=== PATIENT | female | born 1945 | race Hispanic/Latino ===

== ENCOUNTER 2019-04-29 08:25 | Emergency (ER) | payer MEDICARE ==
[~2019-04-29] VITALS: Ht 154.9 cm; Wt 103.4 kg
[~2019-04-29 08:25] MED LIST: ASA81 MG PO; ASPIR 8181 MG PO; AUGMENTIN 875-1 EACH PO; BACLOFEN10 MG PO; COUMADIN4 MG PO; GABAPENTIN300 MG PO; GLIPIZIDE ER10 MG PO; K-DUR20 ME1 PO; KEFLEX500 MG; KLOR-CON M2020 MEQ PO; LASIX20 MG PO; LEVOTHROID175 MCG PO; LEVOTHYROXINE200 MCG PO; LOSARTAN POTASS25 MG PO; METFORMIN HCL500 MG PO; OXAPROZIN600 MG PO; POTASSIUM CHLO20 ME1 PO; SIMVASTATIN40 MG PO; TYLENOL WITH C1 EACH PO; ULTRAM50 MG PO; Z LEVOTHROID PO; Z.0.COUMADIN3 MG PO; Z.0.GLUCOPHAGE500 MG PO; Z.0.LASIX40 MG PO; Z.0.PROTONIX40 MG PO; Z.0.SIMVASTATIN40 MG PO
--- OUTSIDE RECORDS SUMMARY | 2019-04-29 08:29 | XMS REPORT ---
[facility] Address Unknown Phone Unavailable Care Team Providers Care [employer] Driver Name Role Phone Ruth REYNAGA Unavailable Unavailable Problems This patient has no known problems. Allergies, Adverse Reactions, Alerts This patient has no known allergies or adverse reactions. Medications This patient has no known medications. Results Test Description Test Time Test Comments Text Results Atomic Results Result Comments FOREARM LEFT 2 VIEW [place] [address] Patient Name: ARIN ALBERTO MR #: [id number] : 1945 Age/Sex: 71/F Req #: [id number] Adm Physician: Ordered by: CAROL REYNAGA MD Report #: [id number] Location: ER Room/Bed: Procedure: [id number] DX/FOREARM LEFT 2 VIEW Exam Date: 06/26/17 Exam Time: 2114 REPORT STATUS: Signed FOREARM LEFT 2 VIEW HISTORY: Status post fall COMPARISON: None FINDINGS: Bones: No displaced fracture. Osseous alignment is within normal limits. Joints: The joint spaces are well-maintained. Soft tissues: Dorsal left forearm soft tissue swelling IMPRESSION: No acute osseous abnormality. Diffuse soft tissue swelling more significant at the dorsal mid left forearm Signed by: Dr. Ranjan Villaseñor M.D. on 06/26/2017 10:14 PM Dictated By: RANJAN WRIGHT MD 13 Transcribed By: [place] on 06/26/172213 COPY TO: CAROL REYNAGA MD
--- NOTE | 2019-04-29 09:20 | Diagnostic Imaging Report ---
EXAMINATION: CXR 1 [facility] INDICATION: Cough COMPARISON: Chest radiograph of 06/10/2012 FINDINGS: LINES/TUBES:None LUNGS:The lungs are well-inflated. No focal consolidation or pulmonary edema. Mild subsegmental atelectasis at the left midlung zone. PLEURA:No pleural effusion or pneumothorax. MEDIASTINUM:Cardiomediastinal silhouette is stably enlarged. BONES/SOFT TISSUES:No acute osseous injury. Sternotomy wires intact. ABDOMEN:No free air under the diaphragm. IMPRESSION: No focal pneumonia or pulmonary edema. Signed by: Christi Mann MD on 04/29/2019 9:17 AM
[2019-04-29 10:15] VITALS: BP 119/62
== END 2019-04-29 10:25 | disposition home or self-care (01) ==
LOC: FSED 08:25
DX: R05 Cough (principal); J20.9 Acute bronchitis, unspecified
CPT/HCPCS: 71045; 83518; 87400; 99283

== ENCOUNTER → 2020-03-28 | Outpatient (CLI) | payer MEDICARE | LOC: CARD 13:39 | PROVIDERS: ATTEND Family Medicine | DX: I73.9 Peripheral vascular disease, unspecified (principal) | CPT/HCPCS: 93922; 93925 ==

== ENCOUNTER 2020-08-29 12:42 | Inpatient (IN) | payer MEDICARE ==
[~2020-08-29] VITALS: Ht 154.9 cm; Wt 99.9 kg
[2020-08-29] MEDS ORDERED: ACETAMINOPHEN 325 MG SUPP PR ONE (13:15)
[2020-08-29] MEDS ORDERED: LACTATED RINGER'S 1,000 ML INJ ONE (13:15)
[2020-08-29] MEDS ORDERED: CEFTRIAXONE SOD 1 GM/NS 50 ML 50 ML IV ONE (13:15)
[2020-08-29] MEDS ORDERED: ACETAMINOPHEN 325 MG TAB PO PRN (13:15)
[2020-08-29] MEDS ORDERED: ACETAMINOPHEN 650 MG SUPP PR ONE (13:16)
[2020-08-29 13:24] LABS: BASOPHILS % 0.4 % (0.0-1.0); HEMATOCRIT 39.7 % (34.2-44.1); HEMOGLOBIN 12.6 g/dL (12.0-16.0); LYMPHOCYTES # (AUTO) 2.9 (1.0-3.2); LYMPHOCYTES % 28.3 % (18.0-39.1); MEAN CORPUSCULAR HEMOGLOBIN 29.7 pg (28-32); MEAN CORPUSCULAR HGB CONC 31.7 g/dL (31-35); MEAN CORPUSCULAR VOLUME 93.6 fL (81-99); MONOCYTES # (AUTO) 1.4 (0.2-0.8); MONOCYTES % 13.5 % (4.4-11.3); NEUTROPHILS # (AUTO) 5.9 (2.1-6.9); NEUTROPHILS % 57.4 % (38.7-80.0); PLATELET COUNT 316 x10e3/uL (140-360); RED BLOOD COUNT 4.24 x10e6/uL (3.6-5.1); RED CELL DISTRIBUTION WIDTH 14.6 % (11.7-14.4)
[2020-08-29 13:27] LABS: CLARITY,URINE CLEAR (CLEAR); COLOR,URINE YELLOW (YELLOW); KETONES,URINE NEGATIVE (NEGATIVE); LEUKOCYTE ESTERASE ,URINE NEGATIVE (NEGATIVE); NITRITE,URINE NEGATIVE (NEGATIVE); PROTEIN,URINE DIPSTICK 2+ (NEGATIVE)
[2020-08-29 13:36] LABS: BACTERIA,URINE RARE /HPF; EPITHELIAL CELLS,URINE RARE /LPF
[2020-08-29 13:44] LABS: ALBUMIN 3.7 g/dL (3.5-5.0); ALBUMIN/GLOBULIN RATIO 0.7 (0.8-2.0); ANION GAP 13.4 mmol/L (8-16); CALCIUM 8.8 mg/dL (8.4-10.2); CREATININE, SERUM 1.31 mg/dL (0.57-1.11); POTASSIUM 3.4 mmol/L (3.5-5.1)
[2020-08-29 15:27] LABS: INR 1.04; PROTHROMBIN TIME 14.2 seconds (11.9-14.5)
[2020-08-29] MEDS ORDERED: ONDANSETRON HCL INJ 2MG/ML 2ML 2 MG/ML VIAL IV PRN ×2 (15:30→17:00)
[2020-08-29] MEDS: GABAPENTIN 300 MG CAP PO SCH (15:56)
[2020-08-29] MEDS: AZITHROMYCIN 500MG/NS 250 ML 250 ML IV SCH (15:56)
[2020-08-29] MEDS ORDERED: GLIPIZIDE 5 MG PO SCH (17:00)
[2020-08-29 20:25] VITALS: BP 120/63
[2020-08-29] MEDS ORDERED: ZOLPIDEM TARTRATE 5 MG TAB PO PRN (21:00)
[2020-08-29] MEDS ORDERED: ENOXAPARIN SOD INJ 40 MG/0.4 ML SYR SC STA (21:51)
[2020-08-29] MEDS ORDERED: DEXTROSE 50% SYRINGE 50 ML IV PRN (22:00)
[2020-08-29 23:00] VITALS: BP 120/63
[2020-08-30] VITALS (8 sets, daily range): BP systolic 98–138; BP diastolic 42–73
[2020-08-30] MEDS ORDERED: SIMVASTATIN40 MG PO (05:48)
[2020-08-30] MEDS ORDERED: PREVACID30 MG (05:48)
[2020-08-30] MEDS ORDERED: BENICAR20 MG PO (05:48)
[2020-08-30] MEDS: LEVOTHYROXINE SODIUM 100 MCG TAB PO SCH (06:00)
[2020-08-30 06:13] LABS: BASOPHILS % 0.4 % (0.0-1.0); HEMATOCRIT 35.6 % (34.2-44.1); HEMOGLOBIN 11.4 g/dL (12.0-16.0); LYMPHOCYTES # (AUTO) 1.8 (1.0-3.2); LYMPHOCYTES % 21.3 % (18.0-39.1); MEAN CORPUSCULAR HEMOGLOBIN 29.2 pg (28-32); MEAN CORPUSCULAR VOLUME 91.3 fL (81-99); MONOCYTES # (AUTO) 0.9 (0.2-0.8); MONOCYTES % 10.4 % (4.4-11.3); NEUTROPHILS # (AUTO) 5.7 (2.1-6.9); NEUTROPHILS % 67.4 % (38.7-80.0); PLATELET COUNT 262 x10e3/uL (140-360); RED CELL DISTRIBUTION WIDTH 14.6 % (11.7-14.4)
[2020-08-30 06:43] LABS: ANION GAP 14.3 mmol/L (8-16); CALCIUM 8.1 mg/dL (8.4-10.2); CREATININE, SERUM 0.98 mg/dL (0.57-1.11); POTASSIUM 4.3 mmol/L (3.5-5.1)
[2020-08-30] MEDS: INSULIN REGULAR, HUMAN 100 UNIT/1 ML 3ML VIAL SQ SCH ×4 (07:30→20:59)
[2020-08-30] MEDS: ASPIRIN 81 MG CHEW TAB PO SCH (08:43)
[2020-08-30] MEDS: GABAPENTIN 300 MG CAP PO SCH ×2 (08:43→16:46)
[2020-08-30] MEDS: GLIPIZIDE 5 MG TAB ER PO SCH ×2 (08:43→16:46)
[2020-08-30] MEDS: POTASSIUM CHLORIDE 20 MEQ TAB CR PO SCH (08:44)
[2020-08-30] MEDS ORDERED: NON-FORMULARY MEDICATION (Warfarin Sodium (Coumadin) 4 MG) PO SCH (09:00)
[2020-08-30] MEDS: ACETAMINOPHEN 325 MG TAB PO PRN (11:55)
[2020-08-30] MEDS: CEFTRIAXONE SOD 1 GM/NS 50 ML 50 ML IV SCH (13:14)
[2020-08-30] MEDS ORDERED: SODIUM CHLORIDE 0.9% 250ML 250 ML ONE (13:33)
[2020-08-30] MEDS: AZITHROMYCIN 500MG/NS 250 ML 250 ML IV SCH (15:30)
[2020-08-30] MEDS ORDERED: BISACODYL 5 MG TAB EC PO ONE (16:30)
[2020-08-30] MEDS: DOCUSATE SODIUM 100 MG CAP PO SCH (16:46)
[2020-08-30] MEDS ORDERED: WARFARIN SOD 2 MG TAB PO SCH (17:00)
[2020-08-30 17:38] LABS: INR 1.02
[2020-08-30] MEDS ORDERED: HEPARIN SOD (PORCINE) 1000 UNIT/ML SDV IV ONE (19:45)
[2020-08-30] MEDS ORDERED: HEPARIN 25,000 UNIT 800 UNIT in DEXTROSE 5% 250ML 250 ML IV SCH ×2 (20:00→22:00)
[2020-08-30] MEDS: SIMVASTATIN 40 MG TAB PO SCH (21:00)
[2020-08-30] MEDS ORDERED: HEPARIN 25,000 UNIT DRIP IV ONE (21:16)
[2020-08-30] MEDS ORDERED: HEPARIN SOD (PORCINE) 5,000 UNIT/ML VIAL IV ONE ×2 (21:45→22:00)
[2020-08-30] MEDS ORDERED: HEPARIN 25,000 UNIT 1,300 UNIT in DEXTROSE 5% 250ML 250 ML IV SCH (21:45)
[2020-08-30] MEDS: HEPARIN 25,000 UNIT 25,000 UNIT in DEXTROSE 5% 250ML 250 ML IV SCH (23:45)
[2020-08-31] VITALS (8 sets, daily range): BP systolic 102–133; BP diastolic 39–69
[2020-08-31] MEDS: ACETAMINOPHEN 325 MG TAB PO PRN (00:53)
[2020-08-31 05:19] LABS: BASOPHILS % 0.4 % (0.0-1.0); HEMATOCRIT 39.1 % (34.2-44.1); HEMOGLOBIN 12.2 g/dL (12.0-16.0); LYMPHOCYTES % 33.2 % (18.0-39.1); MEAN CORPUSCULAR HEMOGLOBIN 29.2 pg (28-32); MEAN CORPUSCULAR HGB CONC 31.2 g/dL (31-35); MEAN CORPUSCULAR VOLUME 93.5 fL (81-99); MONOCYTES # (AUTO) 0.9 (0.2-0.8); MONOCYTES % 9.9 % (4.4-11.3); NEUTROPHILS # (AUTO) 5.1 (2.1-6.9); NEUTROPHILS % 56.1 % (38.7-80.0); PLATELET COUNT 307 x10e3/uL (140-360); RED BLOOD COUNT 4.18 x10e6/uL (3.6-5.1); RED CELL DISTRIBUTION WIDTH 14.6 % (11.7-14.4)
[2020-08-31 05:54] LABS: ANION GAP 13.8 mmol/L (8-16); CALCIUM 8.7 mg/dL (8.4-10.2); CREATININE, SERUM 1.26 mg/dL (0.57-1.11); POTASSIUM 3.8 mmol/L (3.5-5.1)
[2020-08-31] MEDS: LEVOTHYROXINE SODIUM 100 MCG TAB PO SCH (06:00)
[2020-08-31] MEDS: INSULIN REGULAR, HUMAN 100 UNIT/1 ML 3ML VIAL SQ SCH ×4 (07:30→21:00)
[2020-08-31] MEDS: GLIPIZIDE 5 MG TAB ER PO SCH ×2 (08:00→16:42)
[2020-08-31] MEDS: LOSARTAN POTASSIUM 25 MG TAB PO SCH (08:40)
[2020-08-31] MEDS: ASPIRIN 81 MG CHEW TAB PO SCH (08:40)
[2020-08-31] MEDS: DOCUSATE SODIUM 100 MG CAP PO SCH ×2 (08:40→16:41)
[2020-08-31] MEDS: GABAPENTIN 300 MG CAP PO SCH ×2 (08:41→16:42)
[2020-08-31] MEDS: FUROSEMIDE 20 MG TAB PO SCH (08:41)
[2020-08-31] MEDS: POTASSIUM CHLORIDE 20 MEQ TAB CR PO SCH (08:41)
[2020-08-31] MEDS: CEFTRIAXONE SOD 1 GM/NS 50 ML 50 ML IV SCH (13:43)
[2020-08-31] MEDS: AZITHROMYCIN 500MG/NS 250 ML 250 ML IV SCH (15:48)
[2020-08-31] MEDS: WARFARIN SOD 5 MG TAB PO SCH (16:41)
[2020-08-31] MEDS: DEXAMETHASONE SOD PHOS 10 MG/1 ML VIAL IV SCH (22:31)
[2020-08-31] MEDS: SIMVASTATIN 40 MG TAB PO SCH (22:31)
[2020-08-31] MEDS: HEPARIN 25,000 UNIT 25,000 UNIT in DEXTROSE 5% 250ML 250 ML IV SCH (23:45)
[2020-09-01] VITALS (8 sets, daily range): BP systolic 106–119; BP diastolic 52–71
[2020-09-01] MEDS: LEVOTHYROXINE SODIUM 100 MCG TAB PO SCH (05:41)
[2020-09-01 06:01] LABS: BASOPHILS % 0.2 % (0.0-1.0); HEMATOCRIT 37.1 % (34.2-44.1); HEMOGLOBIN 11.6 g/dL (12.0-16.0); LYMPHOCYTES # (AUTO) 1.5 (1.0-3.2); MEAN CORPUSCULAR HEMOGLOBIN 28.9 pg (28-32); MEAN CORPUSCULAR HGB CONC 31.3 g/dL (31-35); MEAN CORPUSCULAR VOLUME 92.3 fL (81-99); MONOCYTES # (AUTO) 0.2 (0.2-0.8); MONOCYTES % 2.8 % (4.4-11.3); NEUTROPHILS # (AUTO) 4.6 (2.1-6.9); NEUTROPHILS % 72.8 % (38.7-80.0); PLATELET COUNT 281 x10e3/uL (140-360); RED BLOOD COUNT 4.02 x10e6/uL (3.6-5.1); RED CELL DISTRIBUTION WIDTH 14.6 % (11.7-14.4)
[2020-09-01 06:14] LABS: INR 1.11
[2020-09-01 06:25] LABS: CALCIUM 8.1 mg/dL (8.4-10.2); CREATININE, SERUM 1.28 mg/dL (0.57-1.11)
[2020-09-01] MEDS: DOCUSATE SODIUM 100 MG CAP PO SCH ×2 (09:00→18:35)
[2020-09-01] MEDS ORDERED: REMDESIVIR 200MG/NS 100ML 200 MG IV ONE (09:00)
[2020-09-01] MEDS: LOSARTAN POTASSIUM 25 MG TAB PO SCH (09:00)
[2020-09-01] MEDS: ASPIRIN 81 MG CHEW TAB PO SCH (09:18)
[2020-09-01] MEDS: GABAPENTIN 300 MG CAP PO SCH ×2 (09:19→18:35)
[2020-09-01] MEDS: POTASSIUM CHLORIDE 20 MEQ TAB CR PO SCH (09:19)
[2020-09-01] MEDS: FUROSEMIDE 20 MG TAB PO SCH (09:19)
[2020-09-01] MEDS: INSULIN REGULAR, HUMAN 100 UNIT/1 ML 3ML VIAL SQ SCH ×4 (11:57→21:00)
[2020-09-01] MEDS: CEFTRIAXONE SOD 1 GM/NS 50 ML 50 ML IV SCH (12:26)
[2020-09-01] MEDS: AZITHROMYCIN 500MG/NS 250 ML 250 ML IV SCH (15:25)
[2020-09-01] MEDS: WARFARIN SOD 5 MG TAB PO SCH (17:00)
[2020-09-01] MEDS: DEXAMETHASONE SOD PHOS 10 MG/1 ML VIAL IV SCH (20:00)
[2020-09-01] MEDS: SIMVASTATIN 40 MG TAB PO SCH (22:11)
[2020-09-01] MEDS: HEPARIN 25,000 UNIT 25,000 UNIT in DEXTROSE 5% 250ML 250 ML IV SCH (23:45)
[2020-09-02] VITALS (7 sets, daily range): BP systolic 106–143; BP diastolic 54–92
[2020-09-02] MEDS: LEVOTHYROXINE SODIUM 100 MCG TAB PO SCH (05:42)
[2020-09-02] MEDS: POTASSIUM CHLORIDE 20 MEQ TAB CR PO SCH (09:00)
[2020-09-02] MEDS: DOCUSATE SODIUM 100 MG CAP PO SCH ×2 (10:15→18:24)
[2020-09-02] MEDS: REMDESIVIR 100MG/NS 100ML 100 MG IV SCH (10:15)
[2020-09-02] MEDS: ASPIRIN 81 MG CHEW TAB PO SCH (10:15)
[2020-09-02] MEDS: LOSARTAN POTASSIUM 25 MG TAB PO SCH (10:16)
[2020-09-02] MEDS: FUROSEMIDE 20 MG TAB PO SCH (10:17)
[2020-09-02] MEDS: GABAPENTIN 300 MG CAP PO SCH ×2 (10:17→18:25)
[2020-09-02] MEDS: ACETAMINOPHEN 325 MG TAB PO PRN (10:18)
[2020-09-02] MEDS: INSULIN REGULAR, HUMAN 100 UNIT/1 ML 3ML VIAL SQ SCH ×4 (10:20→21:00)
[2020-09-02] MEDS: AZITHROMYCIN 500MG/NS 250 ML 250 ML IV SCH (14:58)
[2020-09-02] MEDS: CEFTRIAXONE SOD 1 GM/NS 50 ML 50 ML IV SCH (14:58)
[2020-09-02] MEDS: WARFARIN SOD 5 MG TAB PO SCH (18:25)
[2020-09-02] MEDS: DEXAMETHASONE SOD PHOS 10 MG/1 ML VIAL IV SCH (20:00)
[2020-09-02] MEDS: SIMVASTATIN 40 MG TAB PO SCH (21:43)
[2020-09-02] MEDS: HEPARIN 25,000 UNIT 25,000 UNIT in DEXTROSE 5% 250ML 250 ML IV SCH (23:45)
[2020-09-03] VITALS (8 sets, daily range): BP systolic 121–144; BP diastolic 56–84
[2020-09-03] MEDS: LEVOTHYROXINE SODIUM 100 MCG TAB PO SCH (05:54)
[2020-09-03 06:34] LABS: HEMATOCRIT 34.6 % (34.2-44.1); HEMOGLOBIN 11.2 g/dL (12.0-16.0); LYMPHOCYTES # (AUTO) 1.2 (1.0-3.2); LYMPHOCYTES % 26.3 % (18.0-39.1); MEAN CORPUSCULAR HEMOGLOBIN 28.9 pg (28-32); MEAN CORPUSCULAR HGB CONC 32.4 g/dL (31-35); MEAN CORPUSCULAR VOLUME 89.4 fL (81-99); MONOCYTES # (AUTO) 0.4 (0.2-0.8); NEUTROPHILS % 64.6 % (38.7-80.0); PLATELET COUNT 339 x10e3/uL (140-360); RED BLOOD COUNT 3.87 x10e6/uL (3.6-5.1); RED CELL DISTRIBUTION WIDTH 14.2 % (11.7-14.4)
[2020-09-03 07:04] LABS: ANION GAP 15.4 mmol/L (8-16); CALCIUM 8.5 mg/dL (8.4-10.2); CREATININE, SERUM 1.1 mg/dL (0.57-1.11); POTASSIUM 4.4 mmol/L (3.5-5.1)
[2020-09-03] MEDS: DOCUSATE SODIUM 100 MG CAP PO SCH ×2 (10:26→18:02)
[2020-09-03] MEDS: GLIPIZIDE 5 MG TAB PO SCH ×2 (10:26→18:02)
[2020-09-03] MEDS: ASPIRIN 81 MG CHEW TAB PO SCH (10:26)
[2020-09-03] MEDS: LOSARTAN POTASSIUM 25 MG TAB PO SCH (10:26)
[2020-09-03] MEDS: REMDESIVIR 100MG/NS 100ML 100 MG IV SCH (10:26)
[2020-09-03] MEDS: GABAPENTIN 300 MG CAP PO SCH ×2 (10:27→18:03)
[2020-09-03] MEDS: FUROSEMIDE 20 MG TAB PO SCH (10:27)
[2020-09-03] MEDS: POTASSIUM CHLORIDE 20 MEQ TAB CR PO SCH (10:27)
[2020-09-03] MEDS: CEFTRIAXONE SOD 1 GM/NS 50 ML 50 ML IV SCH (13:08)
[2020-09-03] MEDS: INSULIN REGULAR, HUMAN 100 UNIT/1 ML 3ML VIAL SQ SCH ×4 (13:39→21:00)
[2020-09-03 14:37] LABS: INR 1.32; PROTHROMBIN TIME 17.3 seconds (11.9-14.5)
[2020-09-03] MEDS: AZITHROMYCIN 500MG/NS 250 ML 250 ML IV SCH (16:15)
[2020-09-03] MEDS: WARFARIN SOD 5 MG TAB PO SCH (18:03)
[2020-09-03] MEDS: DEXAMETHASONE SOD PHOS 10 MG/1 ML VIAL IV SCH (20:59)
[2020-09-03] MEDS: SIMVASTATIN 40 MG TAB PO SCH (20:59)
[2020-09-03] MEDS: HEPARIN 25,000 UNIT 25,000 UNIT in DEXTROSE 5% 250ML 250 ML IV SCH (23:45)
[2020-09-04] VITALS (8 sets, daily range): BP systolic 109–160; BP diastolic 58–75
[2020-09-04] MEDS: LEVOTHYROXINE SODIUM 100 MCG TAB PO SCH (05:53)
[2020-09-04 06:34] LABS: INR 1.68
[2020-09-04] MEDS: INSULIN REGULAR, HUMAN 100 UNIT/1 ML 3ML VIAL SQ SCH ×5 (07:30→21:45)
[2020-09-04] MEDS: GLIPIZIDE 5 MG TAB PO SCH ×2 (08:30→16:29)
[2020-09-04] MEDS: ASPIRIN 81 MG CHEW TAB PO SCH (09:04)
[2020-09-04] MEDS: LOSARTAN POTASSIUM 25 MG TAB PO SCH (09:04)
[2020-09-04] MEDS: GABAPENTIN 300 MG CAP PO SCH ×2 (09:04→16:29)
[2020-09-04] MEDS: FUROSEMIDE 20 MG TAB PO SCH (09:04)
[2020-09-04] MEDS: DOCUSATE SODIUM 100 MG CAP PO SCH ×2 (09:04→16:29)
[2020-09-04] MEDS: POTASSIUM CHLORIDE 20 MEQ TAB CR PO SCH (09:05)
[2020-09-04] MEDS: REMDESIVIR 100MG/NS 100ML 100 MG IV SCH (10:00)
[2020-09-04] MEDS: CEFTRIAXONE SOD 1 GM/NS 50 ML 50 ML IV SCH (12:02)
[2020-09-04] MEDS: AZITHROMYCIN 500MG/NS 250 ML 250 ML IV SCH (15:45)
[2020-09-04] MEDS: WARFARIN SOD 5 MG TAB PO SCH (16:29)
[2020-09-04] MEDS ORDERED: REMDESIVIR 200MG/NS 100ML 200 MG in SODIUM CHLORIDE 0.9% 100 ML 100 ML IV ONE (21:30)
[2020-09-04] MEDS: DEXAMETHASONE SOD PHOS 10 MG/1 ML VIAL IV SCH (21:45)
[2020-09-04] MEDS: SIMVASTATIN 40 MG TAB PO SCH (21:45)
[2020-09-05] VITALS (8 sets, daily range): BP systolic 123–171; BP diastolic 51–80
[2020-09-05] MEDS: HEPARIN 25,000 UNIT 25,000 UNIT in DEXTROSE 5% 250ML 250 ML IV SCH ×2 (00:08→23:45)
[2020-09-05] MEDS: LEVOTHYROXINE SODIUM 100 MCG TAB PO SCH (06:00)
[2020-09-05 06:16] LABS: INR 2.11; PROTHROMBIN TIME 25.3 seconds (11.9-14.5)
[2020-09-05 06:25] LABS: ANION GAP 15.5 mmol/L (8-16); CALCIUM 8.4 mg/dL (8.4-10.2); CREATININE, SERUM 0.96 mg/dL (0.57-1.11); POTASSIUM 4.5 mmol/L (3.5-5.1)
[2020-09-05 06:50] LABS: BASOPHILS % 0.3 % (0.0-1.0); HEMATOCRIT 37.3 % (34.2-44.1); HEMOGLOBIN 11.9 g/dL (12.0-16.0); LYMPHOCYTES # (AUTO) 1.8 (1.0-3.2); MEAN CORPUSCULAR HEMOGLOBIN 28.8 pg (28-32); MEAN CORPUSCULAR HGB CONC 31.9 g/dL (31-35); MEAN CORPUSCULAR VOLUME 90.3 fL (81-99); MONOCYTES # (AUTO) 0.4 (0.2-0.8); MONOCYTES % 5.8 % (4.4-11.3); NEUTROPHILS # (AUTO) 4.8 (2.1-6.9); NEUTROPHILS % 67.5 % (38.7-80.0); PLATELET COUNT 383 x10e3/uL (140-360); RED BLOOD COUNT 4.13 x10e6/uL (3.6-5.1); RED CELL DISTRIBUTION WIDTH 14.5 % (11.7-14.4)
[2020-09-05] MEDS: GLIPIZIDE 5 MG TAB PO SCH ×2 (08:30→16:09)
[2020-09-05] MEDS: INSULIN REGULAR, HUMAN 100 UNIT/1 ML 3ML VIAL SQ SCH ×4 (08:30→21:30)
[2020-09-05] MEDS: ASPIRIN 81 MG CHEW TAB PO SCH (09:23)
[2020-09-05] MEDS: DOCUSATE SODIUM 100 MG CAP PO SCH ×2 (09:23→16:09)
[2020-09-05] MEDS: LOSARTAN POTASSIUM 25 MG TAB PO SCH (09:24)
[2020-09-05] MEDS: FUROSEMIDE 20 MG TAB PO SCH (09:24)
[2020-09-05] MEDS: GABAPENTIN 300 MG CAP PO SCH ×2 (09:24→16:10)
[2020-09-05] MEDS: REMDESIVIR 100MG/NS 100ML 100 MG IV SCH (10:00)
[2020-09-05] MEDS ORDERED: REMDESIVIR 200MG/NS 100ML 200 MG in SODIUM CHLORIDE 0.9% 100 ML 100 ML IV ONE (10:00)
[2020-09-05] MEDS: CEFTRIAXONE SOD 1 GM/NS 50 ML 50 ML IV SCH (12:08)
[2020-09-05] MEDS: AZITHROMYCIN 500MG/NS 250 ML 250 ML IV SCH (14:30)
[2020-09-05] MEDS: POTASSIUM CHLORIDE 20 MEQ TAB CR PO SCH (14:45)
[2020-09-05] MEDS ORDERED: ALPRAZOLAM 0.5 MG TAB PO PRN (15:00)
[2020-09-05] MEDS: WARFARIN SOD 5 MG TAB PO SCH (16:09)
[2020-09-05] MEDS ORDERED: SODIUM CHLORIDE 1 GM TAB PO NR (16:15)
[2020-09-05] MEDS: SIMVASTATIN 40 MG TAB PO SCH (20:45)
[2020-09-05] MEDS: DEXAMETHASONE SOD PHOS 10 MG/1 ML VIAL IV SCH (20:45)
[2020-09-05] MEDS ORDERED: REMDESIVIR 100MG/NS 100ML 100 MG in SODIUM CHLORIDE 0.9% 100 ML 100 ML IV SCH (21:30)
[2020-09-06] VITALS: BP 133/81
[2020-09-06 04:15] VITALS: BP 142/68
[2020-09-06 05:09] LABS: INR 2.68; PROTHROMBIN TIME 30.8 seconds (11.9-14.5)
[2020-09-06] MEDS: LEVOTHYROXINE SODIUM 100 MCG TAB PO SCH (06:08)
[2020-09-06 08:00] VITALS: BP 142/68
[2020-09-06] MEDS: GLIPIZIDE 5 MG TAB PO SCH ×2 (08:37→16:25)
[2020-09-06] MEDS: ASPIRIN 81 MG CHEW TAB PO SCH (08:38)
[2020-09-06] MEDS: DOCUSATE SODIUM 100 MG CAP PO SCH ×2 (08:39→16:25)
[2020-09-06] MEDS: LOSARTAN POTASSIUM 25 MG TAB PO SCH (08:39)
[2020-09-06] MEDS: FUROSEMIDE 20 MG TAB PO SCH (08:40)
[2020-09-06] MEDS: GABAPENTIN 300 MG CAP PO SCH ×2 (08:40→16:25)
[2020-09-06] MEDS: POTASSIUM CHLORIDE 20 MEQ TAB CR PO SCH (08:40)
[2020-09-06] MEDS: INSULIN REGULAR, HUMAN 100 UNIT/1 ML 3ML VIAL SQ SCH ×2 (09:22→12:44)
[2020-09-06 10:22] VITALS: BP 142/68
[2020-09-06] MEDS ORDERED: Warfarin Sod PO (13:49)
[2020-09-06] MEDS ORDERED: COLACE100 MG PO (13:49)
[2020-09-06] MEDS ORDERED: DECADRON4 M1 PO (13:52)
[2020-09-06] MEDS: AZITHROMYCIN 500MG/NS 250 ML 250 ML IV SCH (15:30)
[2020-09-06] MEDS: WARFARIN SOD 5 MG TAB PO SCH (16:25)
== END 2020-09-06 17:40 | DRG 177 ==
LOC: ER 12:48 → ERHOLD 14:50 → MED/SURG3 19:54 → IMCU 09-05 22:31
PROVIDERS: ADMIT Internal Medicine; ATTEND Internal Medicine
PROC: 3E0333Z Introduction of Anti-inflammatory into Peripheral Vein, Percutaneous Approach (ICD-10-PCS; 2020-08-31)
PROC: XW033E5 Introduction of Remdesivir Anti-infective into Peripheral Vein, Percutaneous Approach, New Technology Group 5 (ICD-10-PCS; principal; 2020-09-01)
DX: U07.1 COVID-19 (principal); J12.82 Pneumonia due to coronavirus disease 2019; G93.41 Metabolic encephalopathy; N17.9 Acute kidney failure, unspecified; Z68.41 Body mass index [BMI] 40.0-44.9, adult; E11.9 Type 2 diabetes mellitus without complications; I10 Essential (primary) hypertension; E87.6 Hypokalemia; E78.00 Pure hypercholesterolemia, unspecified; Z91.14 Patient's other noncompliance with medication regimen; Z95.2 Presence of prosthetic heart valve; Z90.49 Acquired absence of other specified parts of digestive tract; Z79.01 Long term (current) use of anticoagulants; E03.9 Hypothyroidism, unspecified; Z87.440 Personal history of urinary (tract) infections; Z98.890 Other specified postprocedural states; E66.01 Morbid (severe) obesity due to excess calories; R06.03 Acute respiratory distress; R09.02 Hypoxemia; Z79.82 Long term (current) use of aspirin; Z79.84 Long term (current) use of oral hypoglycemic drugs
CPT/HCPCS: 36415; 51700; 70450; 71045; 80048; 80053; 81001; 82948; 83605; 84443; 85025; 85610; 85730; 87040; 87086; 93005; 93306; 96361; 97139; 99251; 99284; J0456; J0696; J1100; J1644; J1650; J1817; J7050; J7121; U0002

== ENCOUNTER → 2020-10-13 | Outpatient (CLI) | payer MEDICARE ==
[~2020-10-13] MED LIST changes: +BENICAR20 MG PO; +COLACE100 MG PO; +DECADRON4 M1 PO; +PREVACID30 MG; +Warfarin Sod PO
== END ==
LOC: RAD 14:44
PROVIDERS: ATTEND Family Medicine
DX: Z09 Encounter for follow-up examination after completed treatment for conditions other than malignant neoplasm (principal); J18.9 Pneumonia, unspecified organism
CPT/HCPCS: 71046

== ENCOUNTER 2021-07-20 12:51 | Emergency (ER) | payer MEDICARE ==
[~2021-07-20] VITALS: Ht 154.9 cm; Wt 107.0 kg
[2021-07-20] MEDS ORDERED: ZITHROMAX250 MG PO (13:12)
[2021-07-20] MEDS ORDERED: LORATADINE10 MG PO (13:12)
== END 2021-07-20 13:39 | disposition home or self-care (01) ==
LOC: FSED 13:05
DX: R05.9 Cough, unspecified (principal); J40 Bronchitis, not specified as acute or chronic; J06.9 Acute upper respiratory infection, unspecified; I10 Essential (primary) hypertension; E11.9 Type 2 diabetes mellitus without complications; E78.5 Hyperlipidemia, unspecified
CPT/HCPCS: 71046; 99282

== ENCOUNTER → 2022-02-05 | Outpatient (CLI) | payer MEDICARE, OTHER ==
[~2022-02-05] MED LIST changes: +LORATADINE10 MG PO; +ZITHROMAX250 MG PO
== END ==
LOC: RAD 13:57
PROVIDERS: ATTEND Family Medicine
DX: R05.3 Chronic cough (principal)
CPT/HCPCS: 71046